=== PATIENT | female | born 1945 | race Caucasian/White ===

== ENCOUNTER → 2018-02-03 | Outpatient (CLI) | payer MEDICARE, OTHER ==
[~2018-02-03] MED LIST: ALBU90AE IH; ASPI-496 PO; CEFD300C37 PO; CHOL2000 PO; DIAZ2TAB3 PO; DOXY100T PO; FLUT1DIS IH; HYDR12.53 PO; LEVO50TA PO; MOME17SP NAS; MULT-6 PO; MULT-706 PO; OMEG100023 PO; POTA20PA25 PO; PRED-402 PO
== END | disposition home or self-care (01) ==
LOC: RAD 10:33
PROVIDERS: ATTEND Family Medicine
DX: J98.11 Atelectasis (principal); J45.909 Unspecified asthma, uncomplicated; J44.9 Chronic obstructive pulmonary disease, unspecified
CPT/HCPCS: 71046